=== PATIENT | female | born 1955 | race Caucasian/White ===

== ENCOUNTER 2022-10-04 15:36 | Emergency (ER) | payer MEDICAID, OTHER ==
[~2022-10-04] VITALS: Ht 157.5 cm; Wt 52.2 kg
[~2022-10-04 15:36] MED LIST: ASPI-858 PO; GLU500 PO; LIP10 PO; NOR10 PO
[2022-10-04 15:45] VITALS: BP_SYST 137
--- NOTE | 2022-10-04 16:01 | NUR ---
Placed in room 03 . Placed on line haul owner operator, blood pressure machine and pulse oximeter. To gown for exam. Side rails up. Report given to DANIEL Fraga
--- NOTE | 2022-10-04 16:04 | NUR ---
PT BIB DAUGHTER FROM HOME C/O MADHAV ARM PAIN 7/10 FROM FALL AT HOME. PT STATES SHE LOST HER BALANCE. PT HAS BUMP ON BACK OF HEAD. PT DENIES KHAN, N, V. PT HX OF ENDOMETRIAL CA. DAUGHTER STATES FINISHED CHEMO ROUND YESTERDAY. PT AAO X4, PT RESTING COMFORTABLY WITH DAUGHTER BEDSIDE VSS.
[2022-10-04 16:30] LABS: BASOPHILS % (AUTO) 0.2 % (0.0-2.0); EOSINOPHILS % (AUTO) 0.4 % (0.0-4.0); HEMATOCRIT 26.1 % (36-48); HEMOGLOBIN 8.9 g/dL (12.0-16.0); LYMPHOCYTES # (AUTO) 0.9 K/uL (1.0-5.5); LYMPHOCYTES % (AUTO) 11.1 % (20.5-51.5); MEAN CORPUSCULAR HEMOGLOBIN 31 pg (27-31); MEAN CORPUSCULAR HGB CONC 34 % (32-36); MEAN CORPUSCULAR VOLUME 91 fL (79.0-98.0); MONOCYTES # (AUTO) 0.5 K/uL (0.0-1.0); MONOCYTES % (AUTO) 5.5 % (1.7-9.3); NEUTROPHILS # (AUTO) 7.1 K/uL (1.8-7.7); NEUTROPHILS % (AUTO) 82.8 % (40.0-70.0); PLATELET COUNT (AUTO) 113 K/uL (130-430); RED BLOOD CELL COUNT(AUTO) 2.86 MIL/uL (4.2-6.2); RED CELL DISTRIBUTION WIDTH 17.2 % (9.0-15.0); WHITE BLOOD COUNT (AUTO) 8.5 K/uL (4.8-10.8)
--- NOTE | 2022-10-04 16:30 | NUR ---
ER at bedside examining patient.
[2022-10-04 16:36] LABS: PROTHROMBIN TIME 10.8 SECS (9.5-12.5)
[2022-10-04 16:39] LABS: CALCIUM 8.6 mg/dL (8.4-11.0); CREATININE 1.43 mg/dL (0.55-1.30); TOTAL BILIRUBIN 0.6 mg/dL (0.0-1.0)
--- NOTE | 2022-10-04 17:35 | NUR ---
CALLED [facility] AND GAVE REPORT TO CHARGE NURSE TIERRA.
[2022-10-04] MEDS ORDERED: MORPHINE 2 MG/ML INJ. SYRINGE IVP ONE (17:45)
--- NOTE | 2022-10-04 18:25 | NUR ---
TYLENOL 1000MG PO GIVEN FOR BILATERAL ARM PAIN 6/10.
[2022-10-04] MEDS ORDERED: ACETAMINOPHEN 500 MG TABLET PO ONE (18:30)
[2022-10-04 18:56] VITALS: BP_SYST 143
--- NOTE | 2022-10-04 19:02 | NUR ---
Patient to be transferred to [facility]. Is being transferred due to higher level of care. Receiving facility has accepting physician and available space. ER physician has signed transfer form. Patient or responsible green party has agreed to transfer and signed form. Patient belongings inventoried and will be sent with patient. Copy of nursing notes, lab reports, EKG, Physicians Orders and X-rays to be sent with patient. Report called to at receiving facility. Receiving physician is . [facility] has been called for transfer. ETA is [id number].
== END 2022-10-04 18:56 | disposition short-term general hospital (02) ==
LOC: SED 15:36
DX: I62.00 Nontraumatic subdural hemorrhage, unspecified (principal); I10 Essential (primary) hypertension; Z79.899 Other long term (current) drug therapy; Z20.822 Contact with and (suspected) exposure to COVID-19
CPT/HCPCS: 36415; 70450-TC; 76376; 80053; 85025; 85610-TC; 85730-TC; 99285; J2270